=== PATIENT | male | born 1980 | race Caucasian/White ===

== ENCOUNTER 2020-09-23 06:18 | Emergency (ER) | payer OTHER ==
[~2020-09-23] VITALS: Ht 177.8 cm; Wt 81.8 kg
[2020-09-23 06:23] VITALS: BP 136/84; Ht 177.8 cm; Wt 81.8 kg
[2020-09-23 07:11] LABS: BASOPHILS 0.1 % (0-2); EOSINOPHILS 0.1 % (0-7); HEMATOCRIT 38.2 % (42.0-54.0); HEMOGLOBIN 12.7 g/dL (13.5-17.5); IMMATURE GRANULOCYTES 0.2 % (0-5); LYMPHOCYTE ABS# 0.81 10x3/uL (1.32-3.57); LYMPHOCYTES 9.8 % (15-50); MCH 29.3 pg (26.0-34.0); MCHC 33.2 g/dL (31.0-37.0); MCV 88.2 fL (80.0-100.0); MONOCYTES 13.2 % (2-11); NEUTROPHIL ABS# 6.33 10x3/uL (1.78-5.38); NEUTROPHILS 76.6 % (40-80); PLATELET COUNT 162 10x3/uL (130-400); RBC 4.33 10x6/uL (4.20-6.10); RDW 12.6 % (11.5-14.5); WBC 8.3 10x3/uL (4.8-10.8)
[2020-09-23 07:18] LABS: CALC OSMOLALITY 267 mosm/kg (275-300); CALCIUM 8.9 mg/dL (8.5-10.1); CHLORIDE - SERUM 99 mmol/L (98-107); CREATININE - SERUM 1.3 mg/dL (0.6-1.3); GLUCOSE 116 mg/dL (74-106); POTASSIUM - SERUM 4.1 mmol/L (3.5-5.1); SODIUM 132 mmol/L (136-145); UREA NITROGEN 17 mg/dL (7-18); eGFR NON AFRICAN AMERICAN 65 mL/min (90-120)
[2020-09-23 07:27] LABS: ALBUMIN 4.1 g/dL (3.4-5.0); ALKALINE PHOSPHATASE 88 U/L (30-120); ALT (SGPT) 19 U/L (10-68); AMYLASE - SERUM 38 U/L (25-115); BILIRUBIN - TOTAL 0.51 mg/dL (0.2-1.3); LIPASE 122 U/L (73-393); PROTEIN - SERUM 7.1 g/dL (6.4-8.2); TROPONIN-I < 0.017 ng/mL (0.000-0.060)
[2020-09-23 07:37] LABS: BACTERIA FEW HPF (NONE SEEN); BILIRUBIN NEGATIVE (NEGATIVE); KETONE MODERATE mg/dL (NEGATIVE); NITRITE NEGATIVE (NEGATIVE); SQUAMOUS EPITHELIAL OCC HPF (0-4); UROBILINOGEN NORMAL mg/dL (< 2); WHITE CELLS - URINE RARE HPF (0-1)
[2020-09-23] MEDS ORDERED: IBUPROFEN800 MG PO (08:37)
[2020-09-23] MEDS ORDERED: CYCLOBENZAPRINE10 MG PO (08:37)
[2020-09-23] MEDS ORDERED: ACETAMINOPHEN500 M1 PO (08:37)
[2020-09-23] MEDS ORDERED: ZOFRAN ODT4 MG/UDTAB PO (08:37)
== END 2020-09-23 08:55 | disposition home or self-care (01) ==
LOC: D.ER 06:18
PROVIDERS: Family Medicine
DX: N21.0 Calculus in bladder (principal); N13.30 Unspecified hydronephrosis; R10.9 Unspecified abdominal pain; R11.2 Nausea with vomiting, unspecified